=== PATIENT | female | born 1990 | race Caucasian/White ===

== ENCOUNTER 2018-05-30 09:44 | Emergency (ER) | payer BC ==
[2018-05-30 10:22] VITALS: BP 110/62
--- NOTE | 2018-05-30 10:59 | UC ---
Ear Complaint HPI - HPI Summary HPI Summary: bilateral ear pain x 2 days nasal congestion , pnd , mild sinus pressure ears feels plugged, no fever, no chills - History of Current Complaint Chief Complaint: UCEar Stated Complaint: BILATERAL EAR CONCERN Time Seen by Provider: 05/30/18 10:51 Hx Obtained From: Patient Hx Last Menstrual Period: 05/24/18 ?: No Onset/Duration: Gradual Onset, Lasting Days - 2, Still Present Severity Initially: Moderate Severity Currently: Moderate Pain Intensity: 0 Aggravating Factors: Nothing Alleviating Factors: Nothing Associated Signs/Symptoms: Positive: Hearing Loss, URI Symptoms. Negative: Discharge, Foreign Body Sensation, Trauma to Ear, Swelling @ - Allergies/Home Medications Allergies/Adverse Reactions: Allergies Allergy/AdvReac Type Severity Reaction Status Date / Time No Known Allergies Allergy Verified 05/30/18 10:22 PMH/Surg Hx/FS Hx/Imm Hx Previously Healthy: Yes - Surgical History Surgical History: None - Family History Known Family History: Negative: Diabetes - Social History Alcohol Use: Occasionally Substance Use Type: None Smoking Status (MU): Never Smoked Tobacco Review of Systems All Other Systems Reviewed And Are Negative: Yes Constitutional: Positive: Negative Skin: Positive: Negative Eyes: Positive: Negative ENT: Positive: Ear Ache, Nasal Discharge, Sinus Congestion Respiratory: Positive: Negative Is Patient Immunocompromised?: No Physical Exam Triage Information Reviewed: Yes Appearance: Well-Appearing, No Pain Distress, Well-Nourished Vital Signs: Initial Vital Signs Temp 98.5 F 05/30/18 10:19 Pulse 92 05/30/18 10:19 Resp 18 05/30/18 10:19 BP 110/62 05/30/18 10:19 Pulse Ox 100 05/30/18 10:19 Vital Signs Reviewed: Yes Eye Exam: Normal Eyes: Positive: Conjunctiva Clear ENT: Positive: Normal ENT inspection, Hearing grossly normal, Pharynx normal, TMs normal. Negative: TM bulging, TM dull, TM red, Tonsillar swelling, Tonsillar exudate Neck: Positive: Supple, Nontender, No Lymphadenopathy Respiratory: Positive: Chest non-tender, Lungs clear, Normal breath sounds Cardiovascular: Positive: RRR, No Murmur, Pulses Normal Ear Complaint Course/Dx - Differential Dx/Diagnosis Provider Diagnosis: Otalgia of both ears Discharge - Sign-Out/Discharge Documenting (check all that apply): Patient Departure All imaging exams completed and their final reports reviewed: No Studies - Discharge Plan Condition: Stable Disposition: HOME Patient Education Materials: Earache (ED) Referrals: Peace Grimm PA [Primary Care Provider] - If Needed Additional Instructions: Eustachian tube dysfunction may Try Flonase daily - Billing Disposition and Condition Condition: STABLE Disposition: Home
== END 2018-05-30 11:03 | disposition home or self-care (01) ==
LOC: UCCORT 09:44
DX: H92.03 Otalgia, bilateral (principal)
CPT/HCPCS: 99201; G0463